=== PATIENT | female | born 1990 | race Hispanic/Latino ===

== ENCOUNTER 2016-11-29 00:35 | Emergency (ER) | payer OTHER ==
[~2016-11-29] VITALS: Ht 167.6 cm; Wt 118.2 kg
[2016-11-29 01:01] VITALS: BP 151/106; PULSE 103; RESP 16; O2SAT 100
--- NOTE | 2016-11-29 03:04 | ED.REPORT ---
HPI-Headache Date of Service November 29, 2016 ED Provider: Lionel Larose MD A 26 year old female with a history of migraines and ovarian cyst presents to the ED with a migraine headache onset three days ago. Associated symptoms include dizziness, nausea, vomiting, and near-syncope. The patient denies fever or other symptoms. Her headache is similar to previous migraines, although longer in duration. The patient has taken Imitrex, with no relief. Nursing Notes Stated Complaint: MIGRAINE Chief Complaint: Headache Nursing Notes Reviewed: Yes Allergies: Coded Allergies: doxycycline (Verified Allergy, Intermediate, rash, 06/16/12) hydrocodone (Verified Allergy, Unknown, 10/19/15) Uncoded Allergies: bleach, some chemical smells (Allergy, Severe, Headache, 03/31/10) migraines No Active Prescriptions or Reported Meds General Time Seen by MD: 03:03 Chief Complaint Migraine headache Hx Obtained From: Patient Arrived By: Walk-in Sudden in Onset?: No Onset Occurred: 3 days ago Symptom Duration: Since onset Location: : Generalized Quality: Painful Severity: Current: Moderate Severity: Maximum: Moderate Pertinent Negative: Relieved by nothing Related History: Reports: Headache, migraine hx Recent Healthcare: No recent doctor visit Similar Sx Previous: Yes Past Medical History Past Medical History Migraines Ovarian cysts Past Surgical History Reports: Cholecystectomy Family History migraine grandmother Smoking History Never Smoker Social History Alcohol Use: Denies alcohol use Drug Use: Denies drug use Ambulatory Status Independent Review of Systems Review of Systems Note: LNMP one week ago + Near-syncope Constitutional: Denies: Fever GI: Reports: Nausea, Vomiting, Denies: Diarrhea Neurologic: Reports: Dizziness, Headache Complete sys rev & neg: except as marked. Respiratory: Denies: Non-productive cough, Shortness of breath Physical Exam Initial Vital Signs Vital Signs (First) Date Time Temp Pulse Resp B/P Pulse Ox O2 Delivery O2 Flow Rate FiO2 11/29/16 01:01 36.5 103 16 151/106 100 Room Air Initial VS: Reviewed ENT: Conjunctiva normal, No scleral icterus Respiratory: No respiratory distress Skin: Warm, Dry Psychiatric: Mood/affect normal, Behavior normal General/Constitutional: Awake, Alert Head / Eyes: Atraumatic, Normocephalic Pupils: Positive: Photophobia L, Photophobia R Neck: Supple, Full range of motion Neurologic: Oriented X3, Speech NL Moving all four extremities equally Interpretation & Diagnostics Lab Results Interpretation Test 11/29/16 02:30 11/29/16 03:35 Hold Purple Top Tube Received (Received) Hold Wisner Top Tube Received (Received) Hold Urine Received (Received) Re-Eval/Medical Decision Re-Evaluation/Progress : Time of Eval: 04:00 )( Patient Status: Condition improved Re-Evaluation/Progress Note: Patient is feeling much better and wishes to be discharged. Discussed with patient physical exam findings, diagnosis, and plan for discharge. Follow-up and return to the ER instructions given. Patient agrees with plan for care and all questions were addressed. Counseled Regarding: Diagnosis, Need for follow-up, When/why to return to ED Discharge & Departure Impression: Primary Impression: Migraine Migraine type: with aura Status migrainosus presence: with status migrainosus Intractability: not intractable Qualified Code: G43.101 - Migraine with aura, not intractable, with status migrainosus Disposition: Home Discharge Condition All VS Reviewed: Yes Condition: Improved Patient Instructions: Migraine Headache (ED) Additional Instructions: Your emergency room examination included interview and physical exam. We treated her migraine with IV fluids, dexamethasone, ketorolac, Compazine. We are glad that it was effective. Rest tonight in a dark room. Continue previous home medications and follow up with primary care if headache returns. Referrals: Sobeida Callahan DO (PCP) Martineibeugene Attestation Portions of this note were transcribed by Nataliia Dickerson. I, Dr. Larose, personally performed the history, physical exam, and medical decision-making; I reviewed and confirmed the accuracy of the information in the transcribed note. Signed by: Raul Ronquillo, 11/29/2016, 04:08 copies to: Sobeida Callahan Donald L MD November 29, 2016 03:04 NATALIIA DICKERSON November 29, 2016 03:12
[2016-11-29] MEDS ORDERED: 0.9% Sodium Chloride 1,000 ML IV ONE (03:09)
[2016-11-29] MEDS ORDERED: Dexamethasone 10 mg/mL Inj IVPUSH ONE (03:10)
[2016-11-29] MEDS ORDERED: ProchlorPERazine 5 mg/mL 2 mL Inj IVPUSH ONE (03:10)
[2016-11-29 03:30] VITALS: BP 124/77; PULSE 77; RESP 22; O2SAT 98
[2016-11-29 04:27] VITALS: BP 117/38; PULSE 81; RESP 16; O2SAT 97
== END 2016-11-29 04:29 | disposition home or self-care (01) ==
LOC: SED 00:35
DX: G43.101 Migraine with aura, not intractable, with status migrainosus (principal); Z86.69 Personal history of other diseases of the nervous system and sense organs; Z87.42 Personal history of other diseases of the female genital tract; Z88.1 Allergy status to other antibiotic agents; Z88.5 Allergy status to narcotic agent; Z88.8 Allergy status to other drugs, medicaments and biological substances
CPT/HCPCS: 96361; 96374; 96375; 99284; J0780; J1100; J1200; J1885; J7030